=== PATIENT | male | born 1995 | race Two or more races ===

== ENCOUNTER 2023-10-22 10:42 | Emergency (ER) | payer BC, OTHER ==
[~2023-10-22] VITALS: Ht 167.6 cm; Wt 110.8 kg
[2023-10-22] MEDS ORDERED: MELO-335 PO (13:12)
[2023-10-22 13:22] VITALS: BP 129/85; PULSE 79; RESP 18; TEMP 98; O2SAT 98
== END 2023-10-22 13:23 | disposition home or self-care (01) ==
LOC: ER 10:42
DX: S83.8X2A Sprain of other specified parts of left knee, initial encounter (principal); Z79.899 Other long term (current) drug therapy; V29.888A Rider (driver) (passenger) of other motorcycle injured in other specified transport accidents, initial encounter; Y93.I9 Activity, other involving external motion; Y92.820 Desert as the place of occurrence of the external cause; Y99.8 Other external cause status
CPT/HCPCS: 73562; 73610; 73630